=== PATIENT | female | born 1985 | race Caucasian/White ===

== ENCOUNTER 2023-04-05 10:52 | Inpatient (IN) | payer OTHER ==
[~2023-04-05] VITALS: Ht 162.6 cm; Wt 101.5 kg
[2023-05-09] VITALS (14 sets, daily range): BP systolic 129–146; BP diastolic 75–88; PULSE 63–103; TEMP 98–98.3
[2023-05-09] MEDS ORDERED: PROTONIX 40MG T40 MG PO (09:49)
[2023-05-09] MEDS ORDERED: ZYRTEC 10MG10 MG PO (09:50)
--- NOTE | 2023-05-09 17:14 | NUR ---
PATIENT ALERT AND ORIENTED X4, BUT DROWSY. PATIENT BROUGHT TO FLOOR AT 1330. LAP SITES X5, CDI WITH BANDAIDS COVERING. ROBB DRAIN SITE WITH GAUZE/METAPOR TAPE. ROBB DRAIN WITH SMALL AMOUNT OF DRAINAGE. PATIENT REPORTS NAUSEA/DRY HEAVING. POST OP VITALS RUNNING. PATIENT TOLERATING SMALL AMOUNTS OF CLEARS. NO FURTHER NEEDS AT THIS TIME. CALL LIGHT IN REACH.
[2023-05-10] VITALS (7 sets, daily range): BP systolic 133–151; BP diastolic 62–82; PULSE 62–90; TEMP 98.2–99.2
--- NOTE | 2023-05-10 04:25 | NUR ---
PT was having uncontrolled nausea/dry heaves and pain at the beginning of this shift, contacted Dr Millard x2 during the noc, see emar for order changes, pt now able to rest, up to restroom with SBA, IVF infusing d/t inadequate po intake, @ 125cc/hr, pt using home CPAP while asleep. bandaids on lap sites and herminia dressing cdi.
--- NOTE | 2023-05-10 06:26 | NUR ---
continues to have some nausea with small amt of brownish emesis. phenergan given IV @0450, attempting to drink some gatoraid and take bites of jello, reports pain continues, but feels pain meds causing nausea and wants to hold off for now. 50cc sanguineous drainage from ROBB this am. voiding w/o difficulty.
--- NOTE | 2023-05-10 08:56 | NUR ---
PATIENT ALERT AND ORIENTED X4. VSS. PATIENT HERE FOR ELEAZAR GASTRIC SLEEVE. PATIENT REPORTS PAIN 3/10, NO NEED FOR PAIN MEDS AT THIS TIME. LAP SITES X5, CDI, COVERED WITH BANDAIDS. ROBB SITE WITH GAUZE, METAPOR TAPE, DRAINAGE BLOOD-TINGED. PATIENT REPORTS TOLERATING SMALL SIPS OF GATORADE. NO NAUSEA AT THIS TIME. NO FURTHER NEEDS AT THIS TIME. CALL LIGHT IN REACH.
--- NOTE | 2023-05-10 10:00 | NUR ---
Parker met with Patient at bedside to conduct Care Managment ASsessment and discuss discharge planning. Patient lives on . [place], [place] with her and is established with PCP through [facility]. Patient requests discharge medications be sent to [facility] in [place]. Patient is covered by insurance [employer]. Patient endorses the use of CPAP and independency with ADL/IADLs without assistive devices prior to admission. Patient states that her DPO Ais her . Discharge Plan: Home.
[2023-05-10] MEDS ORDERED: ZOFRAN 4MG T4 MG/TAB PO (13:38)
[2023-05-10] MEDS ORDERED: NORCO 325 MG-51 TAB PO (13:38)
--- NOTE | 2023-05-10 14:07 | NUR ---
ROBB DRAIN DC'D. COVERED WITH GAUZE/TEGADERM. PATIENT TOLERATED WELL.
--- NOTE | 2023-05-10 19:00 | NUR ---
PATIENT TRIALED ORAL ZOFRAN AND APPLESAUCE PER DR. GOTTLIEB. PATIENT REPORTS TOLERATING IT WELL AND WANTS TO DISCHARGE. DISCHARGE INSTRUCTIONS PROVIDED. PATIENT EDUCATION GIVEN. IV DC'D. FOLLOW UP APPOINTMENT DISCUSSED, MEDICATIONS REVIEWED. PATIENT DENIES ANY QUESTIONS OR CONCERNS. [facility] WILL ESCORT PATIENT OUT.
== END 2023-05-10 18:50 | disposition home or self-care (01) | DRG 621 ==
LOC: INPTSU 05-09 09:01 → SURG 05-09 09:01
PROVIDERS: ADMIT Surgery
PROC: 8E0W4CZ Robotic Assisted Procedure of Trunk Region, Percutaneous Endoscopic Approach (ICD-10-PCS; 2023-05-09)
PROC: 0DB64Z3 Excision of Stomach, Percutaneous Endoscopic Approach, Vertical (ICD-10-PCS; principal; 2023-05-09 11:00)
DX: E66.01 Morbid (severe) obesity due to excess calories (principal); Z68.39 Body mass index [BMI] 39.0-39.9, adult; K21.9 Gastro-esophageal reflux disease without esophagitis; G47.30 Sleep apnea, unspecified
CPT/HCPCS: C9113; J0690; J1170; J1885; J2250; J2270; J2405; J2550; J2704; J3010; J7120